=== PATIENT | female | born 1960 | race Caucasian/White ===

== ENCOUNTER 2018-09-24 08:05 | Outpatient (CLI) | payer BC ==
--- NOTE | 2018-09-24 09:09 | CT ---
LOW DOSE CT SCAN OF CHEST FOR LUNG CANCER SCREENING: Date: 09/24/18 HISTORY: 58-year-old female with nicotine dependence, current smoker of 12-15 years. FINDINGS: There are multiple calcified lymph nodes in the mediastinum and hilar regions. Calcified nodules are seen in the right lung, consistent with old granulomatous disease. There are a few tiny nodules in the lungs which are not calcified. A 4 mm nodule is seen in the right upper lobe and a 2-3 mm nodule is seen in the left lung base. No pneumothoraces, focal areas of consolidation, pleural or pericardial effusions are seen. There are vascular calcifications without evidence of aneurysmal dilatation of the thoracic aorta. There are d egenerative changes in the spine. IMPRESSION: Lung-RADS Category 2 (benign appearance, less than 1% change of malignancy). RECOMMENDATION: Follow-up screening with LDCT is recommended in 12 months. POS: [facility]
== END 2018-09-24 08:06 | disposition home or self-care (01) ==
LOC: CT 08:05
PROVIDERS: ATTEND Nurse Practitioner Family
DX: F17.210 Nicotine dependence, cigarettes, uncomplicated (principal); Z71.6 Tobacco abuse counseling
CPT/HCPCS: G0297

== ENCOUNTER 2019-04-08 13:41 | Emergency (ER) | payer BC ==
[2019-04-08 14:58] LABS: #Eosinphils 0.1 thou/uL (0.0-0.7); #Lymphocytes 2.7 thou/uL (1.20-3.40); #Neutrophils 2.9 thou/uL (1.40-6.50); %Basophils 0.4 % (0.0-1.0); %Eosinophils 1.4 % (0.0-10.0); %Lymphocytes 39.9 % (21.0-51.0); %Monocytes 14.8 % (0.0-10.0); %Neutrophils 43.6 % (42.0-75.0); Mean Corpuscular HGB CONC 33.2 g/dL (32.0-36.0); Mean Corpuscular Hemoglobin 31.1 pg (27.0-31.0); Mean Corpuscular Volume 93.8 fL (78.0-98.0); Mean Platelet Volume 9.1 fL (7.4-10.4); Platelet Count 169 thou/uL (130-400); RBC Distribution Width 13.2 % (11.5-14.5); Red Blood Cell (RBC) Count 4.82 mill/uL (4.20-5.40); White Blood Cell (WBC) Count 6.7 thou/uL (4.8-10.8)
--- NOTE | 2019-04-08 15:16 | ULT ---
LIMITED LEFT BREAST ULTRASOUND: HISTORY: Pain in the left mid pole region. FINDINGS: Sonographic evaluation of the left retroareolar breast demonstrates no evidence of solid or cystic ma ss, fluid collection, or dilated ducts. Correlation was made with the recent mammogram and ultrasound of 03/29/2019. IMPRESSION: 1. BIRADS category 1 - negative. Return to annual mammographic screening. 2. Further evaluation (including biopsy) in the region of clinical concern should be based on clinic al findings/suspicion. POS: [facility]
[2019-04-08 15:18] LABS: ALT (SGPT) 18 U/L (8-55); AST (SGOT) 17 U/L (5-34); Albumin 4.1 g/dL (3.5-5.0); Alkaline Phosphatase 55 U/L (40-150); Anion Gap 12 mmol/L (10-20); BUN (Urea Nitrogen) 20 mg/dL (9.8-20.1); Bilirubin, Total 0.3 mg/dL (0.2-1.2); Calc. Creatinine Clearance 0 mL/min (70-130); Calcium 9.5 mg/dL (7.8-10.44); Carbon Dioxide 28 mmol/L (22-29); Chloride 105 mmol/L (98-107); Estimated GFR-MDRD 58; Globulin 2.9 g/dL (2.4-3.5); Glucose 89 mg/dL (70-105); Potassium 4.3 mmol/L (3.5-5.1); Sodium 141 mmol/L (136-145)
== END 2019-04-08 16:04 | disposition home or self-care (01) ==
LOC: ERS 13:41
DX: N64.4 Mastodynia (principal); I10 Essential (primary) hypertension; F17.210 Nicotine dependence, cigarettes, uncomplicated; Z79.899 Other long term (current) drug therapy
CPT/HCPCS: 80053; 85025

== ENCOUNTER 2019-04-19 07:19 | Outpatient (CLI) | payer BC ==
--- NOTE | 2019-04-19 08:04 | RAD ---
LEFT SHOULDER 3 VIEWS: HISTORY: Left shoulder pain. FINDINGS: Acromioclavicular and glenohumeral alignment are maintained. Very mild osteophytosis. No acute frac ture or dislocation. No aggressive osseous erosions. IMPRESSION: Minimal osteoarthritic changes. POS: [facility]
== END 2019-04-19 07:20 | disposition home or self-care (01) ==
LOC: RAD-FRANK 07:19
PROVIDERS: ATTEND Nurse Practitioner Family
DX: M25.512 Pain in left shoulder (principal); M19.012 Primary osteoarthritis, left shoulder

== ENCOUNTER 2019-07-23 13:59 | Outpatient (CLI) | payer BC ==
--- NOTE | 2019-07-23 15:54 | MRI ---
MRI Upper Ext Jt Lt WO Con History: R 29.898 left arm weakness Comparison: Shoulder radiographs April 19, 2019 Findings: Biceps tendon: Mild extra articular biceps tenosynovitis. Mild interstitial tearing intra-a rticular tendon Labrum: Tear throughout the body of the posterior labrum. Blunting of the superior labrum. Rotator cuff: Moderate tendinosis subscapularis. High-grade tendinosis supraspinous and infraspinatus tendons. Bursal surface tear throughout the entire supraspinatus tendon at the footprint involving approximately 30% of the footprint width. Mild adjacent subacromial/subdeltoid bursa effusion. Bones: Moderate degenerative disease acromioclavicular joint. Lateral downsloping of the acromion maura rowing the subacromial space. Normal glenoid version. Moderate degenerative disease of the acromioclavicular joint. Muscles: Normal muscle signal and bulk. Soft tissues: Mild fibrosis of the rotator interval. Abnormal thickening and edema of the axillary po uch. Cartilage: No full-thickness defects. Impression: 1. High-grade tendinosis and interstitial tearing craniad fibers subscapularis. 2. Severe tendinosis of the supraspinatus and infraspinatus tendons. 3. 30% bursal surface tear entire supraspinatus tendon with moderate adjacent subacromial/subdeltoid bursa effusion. 4. Lateral downsloping of the acromion narrowing the subacromial space. 5. Fibrosis of the rotator interval as well as thickened edematous axillary pouch suggesting capsulit is in the correct clinical setting.
== END 2019-07-23 14:00 | disposition home or self-care (01) ==
LOC: BICMRI 13:59
PROVIDERS: ATTEND Internal Medicine
DX: R29.898 Other symptoms and signs involving the musculoskeletal system (principal); M76.892 Other specified enthesopathies of left lower limb, excluding foot; M75.102 Unspecified rotator cuff tear or rupture of left shoulder, not specified as traumatic; S46.912A Strain of unspecified muscle, fascia and tendon at shoulder and upper arm level, left arm, initial encounter

== ENCOUNTER 2020-10-22 07:39 | Outpatient (CLI) | payer BC ==
--- NOTE | 2020-10-22 09:27 | RAD ---
LUMBAR SPINE SERIES 3 VIEWS: Date: 10/22/2020 HISTORY: Low back pain. FINDINGS: Vertebral bodies are normal in height. Marked disc narrowing is seen at L5-S1 with vacuum disc phenom enon. Degenerative osteophytes are seen along the course of the spine. Atherosclerotic changes are no jose. Pedicles are intact. IMPRESSION: Arthritic changes with marked disc narrowing at L5-S1. POS: [facility]
== END 2020-10-22 07:40 | disposition home or self-care (01) ==
LOC: RAD-FRANK 07:39
PROVIDERS: ATTEND Nurse Practitioner Family
DX: M54.31 Sciatica, right side (principal); M46.97 Unspecified inflammatory spondylopathy, lumbosacral region; M48.07 Spinal stenosis, lumbosacral region
CPT/HCPCS: 72100

== ENCOUNTER 2020-12-15 14:32 | Outpatient (CLI) | payer BC ==
--- NOTE | 2020-12-15 15:06 | CT ---
CT OF LUMBAR SPINE WITHOUT CONTRAST: 12/15/20 INDICATION: 60-year-old female with history of low back pain. COMPARISON: Lumbar spinal radiograph dated 10/22/20. FINDINGS: There is diffuse osteopenia. There is vacuum disc phenomenon at L5-S1. There are vascular calcifications involving the abdominal aorta. No free fluid or enlarged lymph node s are evident. There are calcified granuloma in the spleen. There is scattered diverticula involving the visualized colon. There is mild degenerative changes of both SI joints. At L5-S1, there is a broad based disc osteophyte complex with loss of disc space height and facet scar nt degenerative change inducing mild bilateral neural foraminal narrowing. At L4-5, there is a broad based bulge, facet hypertrophy inducing mild neural foraminal narrowing nate aterally. At L3-4, there is a broad based with facet hypertrophy inducing mild bilateral neural foraminal narro wing, right greater than left. There is also mild central canal narrowing at this level. At L2-3, there is a mild broad based bulge but no appreciable central canal or neural foraminal narro wing. At L1-2, there is no appreciable central canal or neural foraminal narrowing. IMPRESSION: Mild spondylosis of the lumbar spine most prominent at L3-4 through L4-5. POS: [facility]
== END 2020-12-15 14:33 | disposition home or self-care (01) ==
LOC: BICCT 14:32
PROVIDERS: ATTEND Neurological Surgery
DX: M54.5 Low back pain (principal); M47.816 Spondylosis without myelopathy or radiculopathy, lumbar region
CPT/HCPCS: 72131

== ENCOUNTER 2021-04-19 08:36 | Outpatient (CLI) | payer BC | END 2021-04-19 08:37 | disposition home or self-care (01) | LOC: BICCT 08:36 | PROVIDERS: ATTEND Nurse Practitioner Family | DX: Z12.2 Encounter for screening for malignant neoplasm of respiratory organs (principal); Z87.891 Personal history of nicotine dependence | CPT/HCPCS: 71271 ==

== ENCOUNTER 2021-08-23 10:38 | Outpatient (CLI) | payer BC | END 2021-08-23 10:39 | disposition home or self-care (01) | LOC: BICMAMMO 10:38 | PROVIDERS: ATTEND Surgery | DX: Z08 Encounter for follow-up examination after completed treatment for malignant neoplasm (principal); Z85.3 Personal history of malignant neoplasm of breast | CPT/HCPCS: G0279 ==

== ENCOUNTER 2021-11-08 11:30 | Outpatient (CLI) | payer BC | END 2021-11-08 11:31 | disposition home or self-care (01) | LOC: SCSMRI 11:30 | PROVIDERS: ATTEND Nurse Practitioner Family | DX: H53.8 Other visual disturbances (principal); R51.9 Headache, unspecified; I67.82 Cerebral ischemia | CPT/HCPCS: 70553; 82565 ==

== ENCOUNTER 2021-12-06 08:16 | Outpatient (CLI) | payer BC | END 2021-12-06 08:17 | disposition home or self-care (01) | LOC: BICMAMMO 08:16 | PROVIDERS: ATTEND Nurse Practitioner Family | DX: N64.4 Mastodynia (principal); Z85.3 Personal history of malignant neoplasm of breast | CPT/HCPCS: G0279 ==

== ENCOUNTER 2022-04-27 07:41 | Outpatient (CLI) | payer BC | END 2022-04-27 07:42 | disposition home or self-care (01) | LOC: BICCT 07:41 | PROVIDERS: ATTEND Nurse Practitioner Family | DX: Z12.2 Encounter for screening for malignant neoplasm of respiratory organs (principal); Z87.891 Personal history of nicotine dependence | CPT/HCPCS: 71271 ==

== ENCOUNTER 2024-05-02 07:23 | Outpatient (CLI) | payer BC | END 2024-05-02 07:24 | disposition home or self-care (01) | LOC: BICCT 07:23 | PROVIDERS: ATTEND Nurse Practitioner Family | DX: Z12.31 Encounter for screening mammogram for malignant neoplasm of breast (principal); Z13.820 Encounter for screening for osteoporosis; Z12.2 Encounter for screening for malignant neoplasm of respiratory organs; M85.88 Other specified disorders of bone density and structure, other site; Z85.3 Personal history of malignant neoplasm of breast; Z78.0 Asymptomatic menopausal state; Z90.12 Acquired absence of left breast and nipple; Z87.891 Personal history of nicotine dependence; Z98.890 Other specified postprocedural states | CPT/HCPCS: 71271; 77080; G0279 ==